=== PATIENT | female | born 1990 | race Caucasian/White ===

== ENCOUNTER 2023-09-04 05:08 | Inpatient (IN) | payer OTHER, SELFPAY ==
[2023-09-04] VITALS (136 sets, daily range): BP systolic 106–152; BP diastolic 55–115; PULSE 74–136; RESP 16; TEMP 36.2–36.6; O2SAT 95–100; BMI 30.5
--- NOTE | 2023-09-04 05:32 | LDADM ---
This patient, Jena Oliver, was admitted to Labor/Delivery/Recovery 107 on 09/04/23 at 05:08. Plans for labor, pain management and were discussed with patient. Patient/family oriented to hospital policies and general routines including ID bracelet, bed and alarms, visiting hours, pain management, procedures, bathroom and other care routines, personal items, smoking policy, room service/diet and guest tray routines, security routines, and visiting hours. Patient/Family are encouraged to report perceived risks to care and to ask questions if they do not understand what they are told or what they should do. See OBIX for further documentation.
[2023-09-04 06:02] LABS: Basophils Percent Auto 0.4 % (0.2-1.2); Eosinophils Absolute Auto 0.1 K/mm3 (0-0.3); Eosinophils Percent Auto 0.8 % (0-4.4); Hemoglobin 12.4 g/dL (12.0-15.0); Immature Granulocyte Absolute 0.05 K/mm3 (0.00-0.031); Immature Granulocyte Percent A 0.5 % (0-0.5); Immature Platelet Fraction Pct 7.7 % (0.9-11.2); Lymphocytes Absolute Auto 2.78 K/mm3 (0.9-3.2); Lymphocytes Percent Auto 30.1 % (18.3-44.2); Mean Corpuscular HGB Conc 33.5 g/dl (32-36); Mean Corpuscular Hemoglobin 32.1 pg (26-34); Mean Corpuscular Volume 95.9 fl (80-100); Mean Platelet Volume 11.5 fl (7.4-10.4); Monocytes Absolute Auto 0.6 K/mm3 (0.1-0.6); Monocytes Percent Auto 6.8 % (2.6-8.5); Neutrophils Absolute Auto 5.7 K/mm3 (1.3-6.7); Neutrophils Percent Auto 61.4 % (45.5-73.1); Platelet Count Result 219 k/mm3 (150-375); Red Blood Count 3.86 M/mm3 (4.2-5.4); Red Cell Distribution Width 13.2 % (11.5-14.5); White Blood Count 9.2 K/mm3 (4.5-10.0)
[2023-09-04 06:09] LABS: Alanine Aminotransferase 17 U/L (6-35); Albumin Level 3.1 g/dL (3.5-5.1); Alkaline Phosphatase 101 U/L (38-126); Anion Gap 7 mmol/L (8-16); Aspartate Amino Transferase 18 U/L (14-36); Bilirubin,Total 0.4 mg/dL (0.2-1.3); Blood Urea Nitrogen 4 mg/dL (7-17); Calcium 8.5 mg/dL (8.4-10.2); Carbon Dioxide 19 mmol/L (22-30); Chloride 107 mmol/L (98-107); Estimated CRCL calculation 206 ml/min; Estimated Glomerular Filt Rate > 60; Glucose 112 mg/dL (65-110); Potassium 3.5 mmol/L (3.4-5.0); Sodium 133 mmol/L (137-145); Uric Acid 4.4 mg/dL (2.5-7.5)
--- NOTE | 2023-09-04 06:28 | PM.IMHP ---
H&P: HPI History of Present Illness Date/Time: 09/04/23 06:28 Chief Complaint: Term Narrative: 32-year-old 2 para 1 whose last menstrual period was 12/12/2022, EDC is 09/18/2023, presents at 38 weeks gestation with elevated blood pressures. PiH labs were normal. she denies headache or blurred vision PMF Family History Family History Other Unknown family medical history Social History Social History Smoking status: Never smoker Second hand tobacco smoke exposure: No Substance use: never Lack of Transportation: No Lack of Food: Never True Current Housing: I Have Housing Concerned About Future Housing: No Difficulty Paying Gas/Electric Bills: No Difficulty Paying for Meds: No Currently Unemployed: No Education: Master's Degree or Higher Difficulty w/ Childcare or Family Care: No Spiritual care concerns: No Meds Home Medications and Allergies Home Medications Medication Instructions Recorded Confirmed Type vit#24-iron amino acid 1 tablet PO DAILY 08/19/23 08/19/23 History chelat-folic acid 30 mg-975 mcg tablet Allergies Allergy/AdvReac Type Severity Reaction Status Date / Time No Known Allergies Allergy Verified 08/19/23 12:28 Vital Signs Vital Signs - 24 hr 09/04/23 05:32 Oxygen Delivery Room Air Exam Const: General: cooperative, healthy appearing and comfortable Nutritional Appearance: average body habitus Orientation/consciousness: oriented to person, oriented to place and oriented to time Resp: Effort & Inspection: normal respiratory effort Cardio: Rate: regular rate Rhythm: regular rhythm Heart sounds: S1 normal heart sound present and S2 normal heart sound present GI: Inspection: normal to inspection ( gravid soft uterus) : External Female Exam: normal external appearance Speculum Exam - Vagina: normal appearance of the vagina Speculum Exam - Cervix: normal appearance of the cervix ( cervix 1.5/50/2. Attempted a round. FHTs reassuring) H&P: Results Labs Labs: [facility] 09/04/23 05:25 Sodium 133 L Potassium 3.5 Chloride 107 Carbon Dioxide 19 L BUN 4 L Creatinine 0.40 L Glucose 112 H Calcium 8.5 Liver Function 09/04/23 Range/Units 05:25 Total Bilirubin 0.4 (0.2-1.3) mg/dL AST 18 (14-36) U/L ALT 17 (6-35) U/L Alkaline Phosphatase 101 (38-126) U/L Albumin 3.1 L (3.5-5.1) g/dL Assessment and Plan Assessment and plan (1) Term : Code(s): Z34.90 - Encounter for supervision of normal , unspecified, unspecified trimester Status: Acute (2) Gestational hypertension: Code(s): O13.9 - Gestational [-induced] hypertension without significant proteinuria, unspecified trimester Status: Acute Plan medical induction of labor. PIH labs were drawn. Spontaneous vaginal deliveries expected. She has an epidural candidate
--- NOTE | 2023-09-04 07:05 | PM.OBPNLAB ---
Pain Control Date/time seen: 09/04/23 07:05 Pain control: tolerating well Pelvic Exam Dilation (cm): 2 Effacement (%): 50 station: -2 Amniotic membrane status: Leaking
[2023-09-04] MEDS: LACTATED RINGERS 1,000 ML 125 ML IV CONT ×2 (08:50→14:09)
[2023-09-04] MEDS: OXYTOCIN 30 UNITS/NS 500 ML 30 UNITS/500 ML BAG IV CONT (08:57)
[2023-09-04 11:03] LABS: Rapid Plasma Reagin Non-Reactive (NonReactive)
--- NOTE | 2023-09-04 12:09 | PM.OBPNLAB ---
Pain Control Date/time seen: 09/04/23 12:09 Pain control: tolerating well Pelvic Exam Dilation (cm): 3 Effacement (%): 50 station: -2 Amniotic membrane status: Leaking
--- NOTE | 2023-09-04 14:39 | WPDANESEPPF ---
Anes - Initial Pre Proc Eval Procedure: labor epidural Date/Time: 09/04/23 14:39 Surgeon: Antwon Helton MD Pre Op Diagnosis: labor pain Pre Op Diagnosis: IOL Patient Data Age: 32 Gender: F Height: 1.78 m Weight: 96.615 kg Last Vital Signs Temp 36.2 C L 09/04/23 14:23 Pulse 95 09/04/23 14:39 BP 140/72 09/04/23 14:39 Pulse Ox 99 09/04/23 14:36 O2 Del Method Room Air 09/04/23 05:32 Allergies Allergy/AdvReac Type Severity Reaction Status Date / Time No Known Allergies Allergy Verified 08/19/23 12:28 Home Medications Medication Instructions Recorded Confirmed Type vit#24-iron amino acid 1 tablet PO DAILY 08/19/23 08/19/23 History chelat-folic acid 30 mg-975 mcg tablet Laboratory Tests 09/04/23 05:25 WBC 9.2 K/mm3 (4.5-10.0) RBC 3.86 L M/mm3 (4.2-5.4) Hgb 12.4 g/dL (12.0-15.0) Hct 37.0 % (37.0-47.0) MCV 95.9 fl (80-100) MCH 32.1 pg (26-34) MCHC 33.5 g/dl (32-36) RDW 13.2 % (11.5-14.5) Plt Count 219 k/mm3 (150-375) MPV 11.5 H fl (7.4-10.4) Immature Gran % (Auto) 0.5 % (0-0.5) Neut % (Auto) 61.4 % (45.5-73.1) Lymph % (Auto) 30.1 % (18.3-44.2) [place] % (Auto) 6.8 % (2.6-8.5) Eos % (Auto) 0.8 % (0-4.4) Baso % (Auto) 0.4 % (0.2-1.2) Lymph # (Auto) 2.78 K/mm3 (0.9-3.2) [place] # (Auto) 0.6 K/mm3 (0.1-0.6) Eos # (Auto) 0.1 K/mm3 (0-0.3) Baso # (Auto) 0.0 K/mm3 (0.0-0.1) Abs Immat Gran (auto) 0.05 H K/mm3 (0.00-0.031) Absolute Neuts (auto) 5.7 K/mm3 (1.3-6.7) Absolute Nucleated RBC 0.0 K/mm3 (0.0-0.012) Nucleated RBC % 0.0 % (0.0-0.2) % Immature Plt Fraction 7.7 % (0.9-11.2) Sodium 133 L mmol/L (137-145) Potassium 3.5 mmol/L (3.4-5.0) Chloride 107 mmol/L (98-107) Carbon Dioxide 19 L mmol/L (22-30) Anion Gap 7 L mmol/L (8-16) BUN 4 L mg/dL (7-17) Creatinine 0.40 L mg/dL (0.7-1.0) Estim Creat Clear Calc 206 ml/min Estimated GFR > 60 (59 - ) Glucose 112 H mg/dL (65-110) Uric Acid 4.4 mg/dL (2.5-7.5) Calcium 8.5 mg/dL (8.4-10.2) Total Bilirubin 0.4 mg/dL (0.2-1.3) AST 18 U/L (14-36) ALT 17 U/L (6-35) Alkaline Phosphatase 101 U/L (38-126) Total Protein 6.0 L g/dL (6.3-8.2) Albumin 3.1 L g/dL (3.5-5.1) RPR Non-reactive (NonReactive) Blood Type AB Positive Antibody Screen Negative Patient hx anesthesia problems: none Family hx anesthesia problems: none Results Review: All pre-operative results and documents have been reviewed as part of the pre-operative evaluation. [facility] Past Medical History Medical History (Updated 09/04/23 @ 14:39 by Iker Templeton DO) Gestational hypertension Family History Family History Other Unknown family medical history Social History Social History Smoking status: Never smoker Second hand tobacco smoke exposure: No Substance use: never Lack of Transportation: No Lack of Food: Never True Current Housing: I Have Housing Concerned About Future Housing: No Difficulty Paying Gas/Electric Bills: No Difficulty Paying for Meds: No Currently Unemployed: No Education: Master's Degree or Higher Difficulty w/ Childcare or Family Care: No Spiritual care concerns: No Anes - Eval Final PreProcedure Day of Procedure 09/04/23 14:39 Patient weight: obese ASA classification: III Anesthetic plan: proceed Anesthesia type and monitoring: regional epidural and standard monitoring Results Review: All pre-operative results and documents have been reviewed as part of the pre-operative evaluation. Informed Consent: The patient's anesthetic plan and its attendant risks and benefits were discussed with the patient/fa
--- NOTE | 2023-09-04 16:36 | P.PCNOB_ITS ---
OB - Vaginal Delivery Note Procedure Delivery date: 09/04/23 Events: Gestational Hypertension Induction method: AROM Delivery augmentation: Pitocin Delivery monitor: External FHT and Internal Uterine Route of delivery: Episiotomy description: None Laceration Description: None Specimen: No Quantitative Blood Loss (ml): 60 Anesthesia type: Epidural Disposition: Floor [place] Baby Date of : 09/04/23 Time of : 16:27 Weeks of gestation at delivery: 38 gender: Male presentation: vertex position: Right Occiput Anterior Placenta delivery description: Spontaneous Cord Vessel Description: 3 Vessels, Nuchal Cord and Loose score one minute: 8 score five minutes: 9
--- NOTE | 2023-09-04 16:38 | PM.DS ---
DS: Admitting Diagnosis Discharge Date 09/05/2023 Admitting Diagnosis Gestational hypertension /term DS: Discharge Diagnosis Discharge Diagnosis (1) Gestational hypertension: Code(s): O13.9 - Gestational [-induced] hypertension without significant proteinuria, unspecified trimester Status: Acute (2) Term : Code(s): Z34.90 - Encounter for supervision of normal , unspecified, unspecified trimester Status: Acute DS: Summary Hospital Course Reason for hospitalization: induction of labor at term Hospital Course: patient underwent successful induction of labor at term on 09/04/2023. Her hospital course unremarkable as were blood pressures stabilized. She remained afebrile. She was up,, eating made a comment general without complaints Time Spent with Patient Time attestation: Total time spent providing and/or coordinating discharge services: DS: Data Data Completed and Pending Labs on day of discharge: Labs from last 24 hours 09/04/23 05:25 WBC 9.2 RBC 3.86 L Hgb 12.4 Hct 37.0 MCV 95.9 MCH 32.1 MCHC 33.5 RDW 13.2 Plt Count 219 MPV 11.5 H Immature Gran % (Auto) 0.5 Neut % (Auto) 61.4 Lymph % (Auto) 30.1 [place] % (Auto) 6.8 Eos % (Auto) 0.8 Baso % (Auto) 0.4 Lymph # (Auto) 2.78 [place] # (Auto) 0.6 Eos # (Auto) 0.1 Baso # (Auto) 0.0 Abs Immat Gran (auto) 0.05 H Absolute Neuts (auto) 5.7 Absolute Nucleated RBC 0.0 Nucleated RBC % 0.0 % Immature Plt Fraction 7.7 Sodium 133 L Potassium 3.5 Chloride 107 Carbon Dioxide 19 L Anion Gap 7 L BUN 4 L Creatinine 0.40 L Estim Creat Clear Calc 206 Estimated GFR > 60 Glucose 112 H Uric Acid 4.4 Calcium 8.5 Total Bilirubin 0.4 AST 18 ALT 17 Alkaline Phosphatase 101 Total Protein 6.0 L Albumin 3.1 L RPR Non-reactive Blood Type AB Positive Antibody Screen Negative Discharge Plan Discharge Attending physician on discharge: Antwon Wood Discharging Clinician: Antwon Wood Patient Disposition: Home, Self-Care Activity: may shower, no straining and pelvic rest Diet: heart healthy Wound Care Instructions: follow printed instructions Patient Instructions: Antibiotic Form Stand Alone Forms: General Discharge Information Follow-up/Referrals: Antwon Wood MD [Physician] - Discharge Medications: Continued Complete 30-975 mg-mcg Tablet 1 tablet PO DAILY Date of admission: 09/04/23 05:08 Primary Care Provider: PHYSICIAN,CORPORATE LIBRARIAN Admitting Provider: Antwon Wood Attending physician on admission: Antwon Wood Condition: Stable
[2023-09-04] MEDS: OXYTOCIN 30 UNITS/NS 500 ML 30 UNITS/500 ML BAG 125 UNITS IV CONT (16:57)
[2023-09-04] MEDS: BENZOCAINE 20% AER SPR (*SP) 56 GM CAN 1 SPRAY TOPICAL (18:48)
[2023-09-04] MEDS: WITCH HAZEL 40 PADS 1 PAD TOPICAL (18:48)
[2023-09-04] MEDS: IBUPROFEN 600 MG TABLET PO (20:19)
--- NOTE | 2023-09-04 21:00 | PC.NURSE ---
Pt assisted up to bathroom again. Gait steady now. Pt voided without difficulty. Pt able to perform mike-care independently.
[2023-09-05] VITALS (9 sets, daily range): BP systolic 113–135; BP diastolic 51–67; PULSE 69–91; RESP 16; TEMP 36.1–36.2; O2SAT 98–100
[2023-09-05] MEDS: IBUPROFEN 600 MG TABLET PO ×2 (04:15→11:23)
[2023-09-05 04:46] LABS: Hematocrit 31.3 % (37.0-47.0); Hemoglobin 10.6 g/dL (12.0-15.0)
--- NOTE | 2023-09-05 06:38 | PM.OBPNVD ---
OB - PN: Subj Subjective Date/time seen: 09/05/23 06:38 Patient comments: no complaints and pain well controlled baby status: doing well OB - PN: Obj Data Labs 09/05/23 04:35 09/04/23 05:25 Labs: Laboratory Results - last 24 hr 09/04/23 09/05/23 05:25 04:35 Hgb 10.6 L Hct 31.3 L RPR Non-reactive Blood Type AB Positive Antibody Screen Negative OB - PN A/P Plan day: 1 Plan: routine care Time Spent With Patient Time: Total time spent is greater than 50% in coordination of care (as documented) at patient's floor/unit and/or counseling patient: Time with patient: less than 15 minutes Exam Const: General: cooperative, healthy appearing and comfortable Nutritional Appearance: average body habitus Orientation/consciousness: oriented to person, oriented to place and oriented to time Resp: Effort & Inspection: normal respiratory effort Cardio: Rate: regular rate Rhythm: regular rhythm Heart sounds: S1 normal heart sound present and S2 normal heart sound present GI: Inspection: normal to inspection (fundus firm)
[2023-09-05] MEDS: MULTIVIT/MIN/PREN/FOL AC/IRON TABLET 1 TAB PO (11:23)
--- NOTE | 2023-09-05 13:20 | PC.NURSE ---
Mom/baby unit RN will be providing mom's final education and discharge instructions. Requested they send me a copy of the QR code that mom's can watch the mom/baby care video from.
--- NOTE | 2023-09-05 13:30 | PC.NURSE ---
Pt given QR code for link to maternal /infant education.
[2023-09-07 11:47] VITALS: BP 138/87; PULSE 71; RESP 18; TEMP 36.6; O2SAT 100
== END 2023-09-05 19:09 | disposition home or self-care (01) | DRG 807 ==
LOC: ANHLDR 16:40 → ANHOBPP 19:35
PROVIDERS: Admitting Provider Obstetrics & Gynecology; Visit Provider Obstetrics & Gynecology
DX: O13.4 Gestational [pregnancy-induced] hypertension without significant proteinuria, complicating childbirth (principal); Z37.0 Single live birth; Z3A.38 38 weeks gestation of pregnancy; O69.81X0 Labor and delivery complicated by cord around neck, without compression, not applicable or unspecified
CPT/HCPCS: 36415; 80053; 84550; 85014; 85018; 85025; 85055; 86592; 86850; 86900; 86901; A9270; J2590; J2795; J7120

== ENCOUNTER 2024-04-14 09:19 | Outpatient (CLI) | payer OTHER, SELFPAY ==
[2024-04-14 13:04] LABS: Basophils Percent Auto 0.5 % (0.2-1.2); Eosinophils Absolute Auto 0.1 K/mm3 (0-0.3); Eosinophils Percent Auto 1.2 % (0-4.4); Hematocrit 42.5 % (37.0-47.0); Hemoglobin 13.6 g/dL (12.0-15.0); Immature Granulocyte Absolute 0.01 K/mm3 (0.00-0.031); Immature Granulocyte Percent A 0.2 % (0-0.5); Lymphocytes Absolute Auto 2.48 K/mm3 (0.9-3.2); Lymphocytes Percent Auto 38.4 % (18.3-44.2); Mean Corpuscular Hemoglobin 29.1 pg (26-34); Mean Platelet Volume 10.6 fl (7.4-10.4); Monocytes Absolute Auto 0.5 K/mm3 (0.1-0.6); Monocytes Percent Auto 7.1 % (2.6-8.5); Neutrophils Absolute Auto 3.4 K/mm3 (1.3-6.7); Neutrophils Percent Auto 52.6 % (45.5-73.1); Platelet Count Result 331 k/mm3 (150-375); Red Blood Count 4.67 M/mm3 (4.2-5.4); White Blood Count 6.5 K/mm3 (4.5-10.0)
[2024-04-14 13:29] LABS: Alanine Aminotransferase 19 U/L (6-35); Albumin Level 4.1 g/dL (3.5-5.1); Alkaline Phosphatase 69 U/L (38-126); Anion Gap 7 mmol/L (4-12); Aspartate Amino Transferase 38 U/L (14-36); Bilirubin,Total 0.6 mg/dL (0.2-1.3); Blood Urea Nitrogen 9 mg/dL (7-17); Calcium 8.7 mg/dL (8.4-10.2); Carbon Dioxide 28 mmol/L (22-30); Chloride 105 mmol/L (98-107); Cholesterol 161 mg/dL (0-200); Estimated Glomerular Filt Rate > 60; Glucose 87 mg/dL (65-110); HDL Direct 39 mg/dL; Potassium 3.9 mmol/L (3.4-5.0); Sodium 140 mmol/L (137-145); Triglycerides 170 mg/dL (<150)
[2024-04-14 13:31] LABS: LDL Cholesterol Direct 90 mg/dL
[2024-04-14 16:19] LABS: Vitamin D 25 Hydroxy 40.3 ng/mL
== END 2024-04-14 09:20 | disposition home or self-care (01) ==
LOC: ANHGOSHLAB 09:20
PROVIDERS: PCP Internal Medicine; Visit Provider Clinical Nurse Specialist
DX: E55.9 Vitamin D deficiency, unspecified (principal); Z13.220 Encounter for screening for lipoid disorders; Z13.228 Encounter for screening for other metabolic disorders; O13.9 Gestational [pregnancy-induced] hypertension without significant proteinuria, unspecified trimester
CPT/HCPCS: 36415; 80053; 80061; 82306; 84443; 85025

== ENCOUNTER 2024-06-24 12:18 | Outpatient (CLI) | payer BC, SELFPAY ==
--- NOTE | ~2024-06-24 | XR_ITS ---
XR knee LT min 4V Ordering provider: SHAR Weathers History: . M25.562 - Pain in left knee . Comparison: None. FINDINGS: BONES: No acute fracture or dislocation. JOINT SPACES: Slight Narrowing of the lateral compartment. SOFT TISSUES: Normal. IMPRESSION: No acute osseous abnormality left knee. Possible early osteoarthritic changes Reviewed, dictated and finalized at location A.
== END 2024-06-24 12:19 ==
PROVIDERS: PCP Internal Medicine; Visit Provider Clinical Nurse Specialist
DX: M25.562 Pain in left knee (principal)
CPT/HCPCS: 73564

== ENCOUNTER 2024-07-29 06:38 | Outpatient (CLI) | payer BC, SELFPAY ==
--- NOTE | ~2024-07-29 | MR_ITS ---
MRI of the left knee Clinical history: Pain Technique: Coronal proton density and proton density-weighted images, sagittal proton-density and T2 fat-sat images, and axial proton-density fat-saturated images were acquired. Findings: There is complete tear of the proximal to midportion of the ACL. Posterior cruciate ligamen t is intact. Medial collateral ligament and the lateral collateral ligament complex are intact. Popli teus tendon is intact. There is complex tearing of the posterior horn and body of the medial meniscus, with probable radial tear near the posterior root as well as superimposed flex/horizontal tearing. No lateral meniscal tea r evident. There is a focal grade 4 chondral lesion/fissure at the central to inner aspect of the medial femoral condyle with subchondral reactive marrow edema. Remaining articular cartilage throughout the knee is otherwise well preserved. Remaining bone marrow signals are unremarkable. Extensor mechanism is intact. Moderate to large joint effusion present. No Pappas's cyst. Impression: Complete ACL tear. Complex tearing of the posterior horn and body of the medial meniscus, as detailed above. Grade 4 chondral lesion of the medial femoral condyle with subchondral reactive marrow edema. Moderate to large joint effusion. Reviewed, dictated and finalized at location . Impression: Complete ACL tear. Complex tearing of the posterior horn and body of the medial meniscus, as detai led above. Grade 4 chondral lesion of the medial femoral condyle with subchondral reactive marrow edema. Moderate to large joint effusion.
== END 2024-07-29 06:39 | disposition home or self-care (01) ==
PROVIDERS: PCP Internal Medicine; Visit Provider Clinical Nurse Specialist
DX: M25.462 Effusion, left knee (principal); S83.512A Sprain of anterior cruciate ligament of left knee, initial encounter; X58.XXXA Exposure to other specified factors, initial encounter
CPT/HCPCS: 73721

== ENCOUNTER 2024-10-16 02:52 | Day surgery (SDC) | payer BC, SELFPAY ==
[2024-10-12 14:05] VITALS: BMI 28.4
--- NOTE | 2024-10-12 14:06 | PC.NURSE ---
Report to the Outpatient Waiting Room, entrance under the green pavilion located off [facility], at time _1200_ on date _[id number]_. Planned Procedure Time: _2pm_.? Time changes happen often and if your time is changed the preop area will call you the afternoon before. - You and your visitor will be asked to self-screen and do not enter if you have any COVID symptoms. Please call surgeon if you need to reschedule. - A mask is optional within the hospital at this time. Patients may have clear liquids (water, carbonated beverages, clear teas, apple juice) until 3 hours prior to surgery with a maximum of 20 ounces. - No food from midnight until time of surgery and no smoking. This includes no chewing gum, candy or mints. Take only the following medications with a SIP of water on the morning of surgery: ____None DO NOT STOP ANY OF YOUR OTHER PRESCRIPTION MEDICATIONS PRIOR TO SURGERY EXCEPT THE FOLLOWING Medications to discontinue per physician __Prenatal vitamin Date to take last pftj____[id number] Please no make-up, nail mauritian, hairspray, perfume, deodorant, or body powder the day of surgery.? No jewelry (including any body piercings) or valuables the day of surgery, leave them at home.? Please take a shower or bath the night before, or the morning of, surgery with an antibacterial soap.? Wear comfortable, loose fitting clothing.? - Jewelry must be removed prior to entering the operating room.? Rings and piercings that are not removed may be cut off. - The hospital will not accept responsibility for valuables.? - Please leave all valuables, including medications, at home the day of surgery. If you are going home after surgery, a licensed sprinkling truck driver must drive you home.? - NO public transportation without another adult if you receive anesthesia. - We recommend that an adult stay with you for 24 hours following discharge. - We also recommend that you do not drive, make important decision, drink alcoholic beverages, or take any drugs that were not prescribed by your health care provider for at least 24 hours after your discharge time. Follow any additional instructions given to you from your surgeon. Telephone instructions given to __Nora__and asked if any additional questions and then verbalized understanding. Patient advised to call surgeon office or pre surgery nurse liaison [phone] if any additional questions.
--- NOTE | 2024-10-13 12:11 | PM.IMHP ---
H&P: HPI History of Present Illness Date/Time: 10/13/24 12:11 Chief Complaint: 1st trimester missed A/B Narrative: This is a 33-year-old 3 para 2 under 1st trimester with an missed A/B ultrasound reveals a 7 week size with no viable heart tones. She will undergo suction dilatation curettage risks and benefits reviewed in great details Review of Systems Review of Systems: All systems reviewed & are unremarkable except as noted in HPI and below PMFSH Past Medical History Medical History Gestational hypertension Family History Family History Father Hypertension Mother Hypertension Grandparent Hypertension Cerebrovascular accident Bladder cancer Other Unknown family medical history Social History Social History Smoking status: Never smoker Second hand tobacco smoke exposure: No Alcohol intake: never Substance use: never Do You Feel Safe in your Home?: Yes Lack of Transportation: No Lack of Food: Never True Current Housing: I Have Housing Concerned About Future Housing: No Difficulty Paying Gas/Electric Bills: No Difficulty Paying for Meds: No Currently Unemployed: No Education: Master's Degree or Higher Difficulty w/ Childcare or Family Care: No Living arrangements: with family Gender identity (if verbalized by the patient): Female Sexual Orientation (if Verbalized by the Patient): Straight or Heterosexual Spiritual care concerns: No Meds Home Medications and Allergies Home Medications ?Medication ?Instructions ?Recorded ?Confirmed ?Type vit#24-iron amino acid 1 tablet PO DAILY 08/19/23 10/12/24 History chelat-folic acid 30 mg-975 mcg tablet Allergies Allergy/AdvReac Type Severity Reaction Status Date / Time No Known Allergies Allergy Verified 10/12/24 14:00 Exam Const: General: cooperative, healthy appearing, comfortable and no acute distress Nutritional Appearance: average body habitus Orientation/consciousness: oriented to person, oriented to place and oriented to time HENMT: Head: normal to inspection Resp: Effort & Inspection: normal respiratory effort Cardio: Rate: regular rate Rhythm: regular rhythm Heart sounds: S1 normal heart sound present and S2 normal heart sound present GI: Inspection: normal to inspection : External Female Exam: normal external appearance Speculum Exam - Vagina: normal appearance of the vagina Speculum Exam - Cervix: normal appearance of the cervix Bimanual exam- vagina & uterus: enlarged Bimanual Exam- Adnexa, other: normal adnexae Assessment and Plan Assessment and plan (1) Missed : Code(s): O02.1 - Missed Status: Acute Plan Proceed with suction dilatation curettage
--- NOTE | 2024-10-16 01:12 | WPDHPUPDATE1 ---
History and Physical Update Update Date/Time: 10/16/24 01:12 History and Physical has been reviewed, including an updated exam of the patient. There are NO changes in the patient's condition. Risks, benefits, and alternatives have been discussed and questions answered. Patient agrees to proceed with procedure.
[2024-10-16 12:38] VITALS: BP 135/82; PULSE 86; RESP 16; TEMP 36.6; O2SAT 100
[2024-10-16 13:03] LABS: Hemoglobin 13.9 g/dL (12.0-15.0)
[2024-10-16] MEDS: ACETAMINOPHEN 500 MG TABLET 1000 MG PO (13:05)
[2024-10-16] MEDS: LACTATED RINGERS 1,000 ML 30 ML IV CONT (13:07)
--- NOTE | 2024-10-16 13:12 | WPDANESEPPF ---
Anes - Initial Pre Proc Eval Procedure: Operation Date: 10/16/24 14:00 Proposed Procedures p Suction Dilation and Curettage - Antwon Helton MD Date/Time: 10/16/24 13:12 Surgeon: Antwon Helton MD Pre Op Diagnosis: Missed AB Patient Data Age: 33 Gender: F Height: 1.78 m Weight: 90 kg Allergies Allergy/AdvReac Type Severity Reaction Status Date / Time No Known Allergies Allergy Verified 10/16/24 13:08 Home Medications ?Medication ?Instructions ?Recorded ?Confirmed ?Type vit#24-iron amino acid 1 tablet PO DAILY 08/19/23 10/12/24 History chelat-folic acid 30 mg-975 mcg tablet hydrocodone 5 mg-acetaminophen 325 1 tablet PO Q4H PRN pain #20 tabs 10/16/24 Rx mg tablet Laboratory Tests 10/16/24 12:46 Hgb 13.9 g/dL (12.0-15.0) Hct 41.0 % (37.0-47.0) Patient hx anesthesia problems: none Family hx anesthesia problems: none Results Review: All pre-operative results and documents have been reviewed as part of the pre-operative evaluation. [facility] Past Medical History Medical History Gestational hypertension Family History Family History Father Hypertension Mother Hypertension Grandparent Hypertension Cerebrovascular accident Bladder cancer Other Unknown family medical history Social History Social History Smoking status: Never smoker Second hand tobacco smoke exposure: No Alcohol intake: never Substance use: never Do You Feel Safe in your Home?: Yes Lack of Transportation: No Lack of Food: Never True Current Housing: I Have Housing Concerned About Future Housing: No Difficulty Paying Gas/Electric Bills: No Difficulty Paying for Meds: No Currently Unemployed: No Education: Master's Degree or Higher Difficulty w/ Childcare or Family Care: No Living arrangements: with family Gender identity (if verbalized by the patient): Female Sexual Orientation (if Verbalized by the Patient): Straight or Heterosexual Spiritual care concerns: No Anes - Eval Final PreProcedure Day of Procedure 10/16/24 13:12 Patient weight: overweight Heart: regular rate and rhythm Lungs: clear to auscultation Airway: Mallampati scale class II Neurological: alert and oriented Last oral intake: >/= 8 hours ASA classification: II Emergent: no Anesthetic plan: proceed Anesthesia type and monitoring: general GIVS and standard monitoring Results Review: All pre-operative results and documents have been reviewed as part of the pre-operative evaluation. Informed Consent: The patient's anesthetic plan and its attendant risks and benefits were discussed with the patient/family/POA. Questions were solicited and answers provided to the satisfaction of the patient/family/POA.
[2024-10-16] MEDS: LIDOCAINE 1% LOCAL INJ 10 ML VIAL INFILTRATE (14:00)
[2024-10-16 14:06] VITALS: BP 112/83; PULSE 78; RESP 17; O2SAT 97
--- NOTE | 2024-10-16 14:07 | W.PM.PROC2 ---
Procedure Note - Detailed Date of Procedure 10/16/24 Pre-op Diagnosis Missed AB Post-op Diagnosis Same Procedure Performed Suction dilatation and curettage Surgeon Antwon Helton MD Anesthesia MAC and Local Indications 33-year-old female with a missed A/B first-trimester Findings uterus sounded to 10cm. Tissue consistent with products of conception Description of Procedure patient was prepped draped in sterile fashion placed in the dorsal lithotomy position. Under excellent IV sedation weighted speculum placed posterior fornix vagina. Anterior lip of the cervix grasped with single-tooth tenaculum. 2.5cc 1% xylocaine anesthesia placed at 2, 4, 8:10 a.m. of the cervix. Uterus sounded to 10cm. Serial dilatation with fragmented dilators performed followed by passes 10. Suction curette this was passed several times until a good grating sound was heard. When no further tissue could be removed grating sound was present the instruments withdrawn the patient went recovery in satisfactory condition. All sponge, needle, instrument counts were correct. There were no immediate complications Estimated Blood Loss 25 Drains No Packing No Pathology Yes Complications No immediate complications Condition Stable Disposition PACU
[2024-10-16 14:35] VITALS: BP 123/74; PULSE 70; RESP 17
== END 2024-10-16 14:45 | disposition home or self-care (01) ==
PROVIDERS: Visit Provider Obstetrics & Gynecology
PROC: (CPT 59820; principal; 2024-10-16 14:00)
DX: O02.1 Missed abortion (principal); Z79.891 Long term (current) use of opiate analgesic; Z80.52 Family history of malignant neoplasm of bladder; Z82.49 Family history of ischemic heart disease and other diseases of the circulatory system
CPT/HCPCS: 59820; 36415; 85014; 85018; 85461; 86850; 86900; 86901; 88305; A9270; J2003; J2250; J2704; J3010; J7120

== ENCOUNTER 2025-08-18 10:24 | Outpatient (CLI) | payer BC, SELFPAY ==
[2025-08-18 12:54] LABS: Hematocrit 41.6 % (37.0-47.0); Hemoglobin 13.8 g/dL (12.0-15.0); Immature Granulocyte Percent A 0.4 % (0-0.5); Lymphocytes Absolute Auto 2.42 K/mm3 (0.9-3.2); Mean Corpuscular HGB Conc 33.2 g/dl (32-36); Mean Corpuscular Hemoglobin 30.3 pg (26-34); Mean Corpuscular Volume 91.4 fl (80-100); Nucleated Red Blood Cells Absolute Auto 0.000 K/mm3 (0.0-0.012); Nucleated Red Blood Cells Perc 0.0 % (0.0-0.2); Platelet Count Result 377 k/mm3 (150-375); Red Blood Count 4.55 M/mm3 (4.2-5.4); White Blood Count 7.6 K/mm3 (4.5-10.0)
[2025-08-18 13:08] LABS: Alanine Aminotransferase 18 U/L (6-35); Albumin Level 4.2 g/dL (3.5-5.1); Alkaline Phosphatase 56 U/L (38-126); Anion Gap 7 mmol/L (4-12); Aspartate Amino Transferase 33 U/L (14-36); Bilirubin,Total 0.9 mg/dL (0.2-1.3); Blood Urea Nitrogen 8 mg/dL (7-17); Calcium 8.7 mg/dL (8.4-10.2); Carbon Dioxide 28 mmol/L (22-30); Chloride 102 mmol/L (98-107); Estimated Glomerular Filt Rate > 60; Glucose 88 mg/dL (65-110); Potassium 3.9 mmol/L (3.4-5.0); Sodium 137 mmol/L (137-145); Total Protein 7.3 g/dL (6.3-8.2)
== END 2025-08-18 10:25 | disposition home or self-care (01) ==
LOC: ANHGOSHLAB 10:24
PROVIDERS: PCP Internal Medicine; Visit Provider Clinical Nurse Specialist
DX: E55.9 Vitamin D deficiency, unspecified (principal); Z13.228 Encounter for screening for other metabolic disorders; Z13.220 Encounter for screening for lipoid disorders
CPT/HCPCS: 36415; 80053; 82306; 85025

== ENCOUNTER 2025-09-24 09:30 | Outpatient (CLI) | payer BC, SELFPAY ==
[2025-09-24 11:40] LABS: Hematocrit 42.7 % (37.0-47.0); Hemoglobin 14.1 g/dL (12.0-15.0); Immature Granulocyte Percent A 0.4 % (0-0.5); Lymphocytes Absolute Auto 2.56 K/mm3 (0.9-3.2); Mean Corpuscular HGB Conc 33.0 g/dl (32-36); Mean Corpuscular Hemoglobin 30.3 pg (26-34); Mean Corpuscular Volume 91.6 fl (80-100); Nucleated Red Blood Cells Absolute Auto 0.000 K/mm3 (0.0-0.012); Nucleated Red Blood Cells Perc 0.0 % (0.0-0.2); Platelet Count Result 354 k/mm3 (150-375); Red Blood Count 4.66 M/mm3 (4.2-5.4); White Blood Count 7.5 K/mm3 (4.5-10.0)
[2025-09-24 11:47] LABS: Cholesterol 175 mg/dL (0-200); HDL Direct 44 mg/dL; Triglycerides 101 mg/dL (<150)
== END 2025-09-24 09:31 | disposition home or self-care (01) ==
LOC: ANHGOSHLAB 09:30
PROVIDERS: PCP Internal Medicine; Visit Provider Clinical Nurse Specialist
DX: Z13.220 Encounter for screening for lipoid disorders (principal); R79.89 Other specified abnormal findings of blood chemistry
CPT/HCPCS: 36415; 80061; 85025